=== PATIENT | female | born 1960 | race Two or more races ===

== ENCOUNTER → 2025-05-24 | Emergency (ER) | payer OTHER ==
[~2025-05-24] VITALS: Ht 157.5 cm; Wt 46.3 kg
[~2025-05-24] MED LIST: CRESTOR40 MG PO; SYNTHROID88 MCG PO
== END | disposition left against medical advice (07) ==
LOC: ER 21:19
DX: Z53.21 Procedure and treatment not carried out due to patient leaving prior to being seen by health care provider (principal)